=== PATIENT | female | born 1960 | race Two or more races ===

== ENCOUNTER 2023-12-06 10:00 | Emergency (ER) | payer MEDICAID, OTHER ==
[~2023-12-06] VITALS: Ht 152.4 cm; Wt 68.8 kg
[2023-12-06] MEDS ORDERED: MECLIZINE HCL 25 MG TAB PO ONE (10:15)
[2023-12-06] MEDS ORDERED: ACETAMINOPHEN 500 MG TAB PO ONE (10:15)
[2023-12-06 10:49] LABS: Basophils # (auto) 0 10 ^3/uL (0-0.2); Basophils % (auto) 0.6 % (0.0-2.0); Eosinophils # (auto) 0 10 ^3/uL (0-0.8); Eosinophils % (auto) 0.7 % (0.0-7.0); Hematocrit 40.4 % (36.0-46.0); Hemoglobin 13.3 g/dL (12.2-16.2); Lymphocytes % (auto) 45.2 % (10.0-50.0); Mean Corpuscular Hemoglobin 29.9 pg (28.0-32.0); Mean Corpuscular Hgb Conc. 32.9 g/dL (32.0-36.0); Mean Corpuscular Volume 90.6 fL (80.0-100.0); Monocytes # (auto) 0.3 10 ^3/uL (0-1.3); Monocytes % (auto) 4.6 % (0.0-12.0); Neutrophils # (auto) 3.2 10 ^3/uL (1.6-8.6); Neutrophils % (auto) 48.9 % (37.0-80.0); Nucleated Red Blood Cells % 0.1 %; Red Blood Cells 4.46 10^6/uL (4.0-5.20); White Blood Cell 6.6 10^3/uL (4.4-10.8)
[2023-12-06 11:24] LABS: Alanine Aminotransferase 22 U/L (7-40); Albumin 4.7 g/dL (3.2-4.8); Alkaline Phosphatase 116 U/L (46-116); Anion Gap 6 (5-15); Aspartate Aminotransferase 26 U/L (13-40); Bilirubin, Total 0.7 mg/dL (0.2-1.0); Blood Urea Nitrogen 18 mg/dL (9-23); Calcium 9.9 mg/dL (8.5-10.1); Carbon Dioxide 28 mmol/L (20-30); Chloride 105 mmol/L (98-107); Glucose 80 mg/dL (74-106); Potassium 4.3 mmol/L (3.5-5.1); Sodium 139 mmol/L (136-145); Total Protein 7.6 g/dL (5.7-8.2)
[2023-12-06 12:45] LABS: Amphetamine Screen, Urine Neg (NEGATIVE); Barbiturate Scree,Urine Neg (NEGATIVE); Benzodiazephine Screen, Urine Neg (NEGATIVE); Cocaine Screen, Urine Neg (NEGATIVE); Opiate Scree,Urine Neg (NEGATIVE)
[2023-12-06 12:46] LABS: Cannabinoid Screen, Urine Neg (NEGATIVE); Phencyclidine Screen, Urine Neg (NEGATIVE)
[2023-12-06 13:02] LABS: Urine Bacteria FEW /hpf (None Seen); Urine Blood 3+ /uL (Negative); Urine Clarity Clear (Clear); Urine Color STRAW (Yellow); Urine Protein, UAD Negative (Negative); Urine Urobilinogen Normal (Negative); Urine WBC 1 /hpf (0 - 5)
[2023-12-06] MEDS ORDERED: IOHEXOL 350 MG/ML 100ML IJ ONE (13:16)
[2023-12-06] MEDS ORDERED: MECL1TAB32 PO (14:16)
[2023-12-06] MEDS ORDERED: CEPH500T PO (14:16)
[2023-12-06 16:18] VITALS: BP 154/79; PULSE 61; RESP 16; TEMP 98.3; O2SAT 99
== END 2023-12-06 16:22 | disposition home or self-care (01) ==
LOC: ER 10:00
DX: R42 Dizziness and giddiness (principal); N39.0 Urinary tract infection, site not specified; R07.89 Other chest pain
CPT/HCPCS: 36415; 70450; 71045; 71275; 72125; 80053; 80307; 81001; 82962; 83880; 84484; 85025; 85379; 93005; 99285; J8597; Q9967

== ENCOUNTER 2025-07-20 15:29 | Emergency (ER) | payer MEDICARE, MEDICAID ==
[~2025-07-20] VITALS: Ht 154.9 cm; Wt 67.9 kg
[~2025-07-20 15:29] MED LIST: CEPH500T PO; MECL-90 PO
--- NOTE | 2025-07-20 16:08 | DVH ---
CHEST RADIOGRAPH Indication: COUGH Technique: Frontal and lateral view of the chest was obtained Comparison: CT CT ANGIO CHEST CONTRAST on DOS: 12/06/23, XY CHEST PORTABLE on DOS: 12/06/23 FINDINGS: Lines and Tubes: None Lungs: Congestion Pleura: No effusion. No pneumothorax. Cardiomediastinal contours: Unremarkable Bones: Unremarkable IMPRESSION: Increased interstital prominence. This may represent pulmonary vascular congestion and/or viral pneum onia. Clinical correlation advised.
--- NOTE | 2025-07-20 16:35 | ED.PDOC ---
SOB-HPI HPI Comments A 65 YEAR OLD FEMALE PRESENTS TO THE ED WITH COMPLAINT OF FLU-LIKE SYMPTOMS. PATIENT STATES SHE HAS BEEN EXPERIENCING A COUGH, CONGESTION, SORE THROAT, AND BILATERAL EAR PAIN FOR THE PAST 2 DAYS. PATIENT REPORTS SHE TOOK AN AT HOME COVID-19 TEST AND IT WAS POSITIVE. PATIENT DENIES FEVER, CHILLS, SHORTNESS OF BREATH, CHEST PAIN, ABDOMINAL PAIN, NAUSEA, VOMITING, HEADACHE, OR OTHER COMPLAINTS. NO OTHER SYMPTOMS OR MODIFYING FACTORS AT THIS TIME. PATIENT IS ALERT, ORIENTED X 4, AND HAS STEADY GAIT. 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 CAR RENTAL AGENT History Family History Family History: Reviewed,noncontributory to illness Social History Smoker: Non-Smoker Alcohol: Denies ETOH Use Drugs: Denies Drug Use Lives In: Home Constitutional: denies: chills, diaphoresis, fatigue, fever, malaise, sweats, weakness, others EENTM: reports: ear pain, nose congestion, throat pain; denies: blurred vision, double vision, ear bleeding, ear discharge, ear drainage, ear ringing, eye pain, eye redness, hearing loss, mouth pain, mouth swelling, nasal discharge, nose bleeding, nose pain, photophobia, tearing, throat swelling, voice changes, others Respiratory: reports: cough; denies: hemoptysis, orthopnea, SOB at rest, shortness of breath, SOB with excertion, stridor, wheezing, others Cardiovascular: denies: chest pain, dizzy spells, diaphoresis, Dyspnea on exertion, edema, irregular heart beat, left arm pain, lightheadedness, palpitations, PND, syncope, others Gastrointestinal: denies: abdomen distended, abdominal pain, blood streaked bowels, constipated, diarrhea, dysphagia, difficulty swallowing, hematemesis, melena, nausea, poor appetite, poor fluid intake, rectal bleeding, rectal pain, vomiting, others Genitourinary: denies: abnormal vagina bleeding, burning, dyspareunia, dysuria, flank pain, frequency, hematuria, incontinence, pain, , vagina discharge, urgency, others Neurological: denies: dizziness, fainting, headache, left sided numbness, left sided weakness, numbness, paresthesia, pre-existing deficit, right sided numbness, right sided weakness, seizure, speech problems, tingling, tremors, weakness, others Musculoskeletal: denies: back pain, gout, joint pain, joint swelling, muscle pain, muscle stiffness, neck pain, others Integumetry: denies: bruises, change in color, change in hair/nails, dryness, laceration, lesions, lumps, rash, wounds, others Allergic/Immunocompromised: denies: Difficulty Healing, Frequent Infections, Hives, Itching, others Hematologic/Lymphatic: denies: anemia, blood clots, easy bleeding, easy bruising, swollen glands, others Endocrine: denies: excessive hunger, excessive sweating, excessive thirst, excessive urination, flushing, intolerance to cold, intolerance to heat, unexplained weight gain, unexplained weight loss, others Psychiatric: denies: anxiety, bipolar disorder, depression, hopeless, panic disorder, schizophrenia, sleepless, suicidal, others All Other Systems: Reviewed and Negative Physical Exam General Appearance: No Apparent Distress, Normal HEENT: PERRL/EOMI, Pharyngeal Erythema (VESICLE PHARYNX, NO EXUDATES. ), TM Abnormal (L), TM Abnormal (R) Neck: Full Range of Motion, Non-Tender, Normal, Normal Inspection Respiratory: Chest Non-Tender, Lungs Clear, No Accessory Muscle Use, No Respiratory Distress, Normal Breath Sounds Cardiovascular: No Edema, No JVD, No Murmur, No Gallop, Normal Peripheral Pulses, Regular Rate/Rhythm Breast Exam: Deferred Gastrointestinal: No Organomegaly, Non Tender, No Pulsatile Mass, Normal Bowel Sounds, Soft Genitalia: Deferred Pelvic: Deferred Rectal: Deferred Extremities: No calf tenderness, Normal capillary refill, Normal inspection, Normal range of motion, Non-tender, No pedal edema Musculoskeletal : Apperance: Normal 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 Was a procedure done?: No Differential Dx Differential Diagnosis: Bronchitis, Pneumonia, Sinusitis, Allergic Rhinitis, Otitis Media, Pharyngitis, URI X-Ray, Labs, Meds, VS Vital Signs Date Time Temp Pulse Resp B/P (MAP) Pulse Ox O2 Delivery O2 Flow Rate FiO2 07/20/25 15:33 98.4 80 16 186/76 96 98.4 CHEST RADIOGRAPH Indication: COUGH Technique: Frontal and lateral view of the chest was obtained Comparison: CT CT ANGIO CHEST CONTRAST on DOS: 12/06/23, XY CHEST PORTABLE on DOS: 12/06/23 FINDINGS: Lines and Tubes: None Lungs: Congestion Pleura: No effusion. No pneumothorax. Cardiomediastinal contours: Unremarkable Bones: Unremarkable IMPRESSION: Increased interstital prominence. This may represent pulmonary vascular congestion and/or viral pneumonia. Clinical correlation advised. ATED BY: YUVAL SANDERSON MD DICTATED DATE/TIME: 07/20/25 160 SIGNED BY: YUVAL SANDERSON MD SIGNED DATE/TIME: 07/20/25 160 CC: X-Ray, Labs, Meds, VS Comment EXTERNAL MEDICAL RECORDS REVIEWED: [NONE] INDEPENDENT HISTORIANS: [NONE] SOCIAL DETERMINANTS OF HEALTH: [NONE] LABS ORDERED: NONE REVIEWED AND INTERPRETED RESULTS: NONE IMAGING ORDERED: XR CHEST TREATMENTS ORDERED: NONE PROCEDURES PERFORMED: NONE CRITICAL CARE TIME: NONE I HAVE DISCUSSED THE PATIENT WITH THE ATTENDING PHYSICIAN DR. COLON AND HE AGREES WITH THE PATIENT'S PLAN OF CARE AND DISPOSITION. BASED ON HISTORY OF PRESENT ILLNESS, AND PHYSICAL EXAM, PATIENT WILL BE DISCHARGED HOME. DISCUSSED PLAN FOR DISCHARGE HOME WITH RX [AZITHROMYCIN AND TYLENOL]. MEDICATION WARNINGS GIVEN. SHARED DECISION MAKING: DISCUSSED WITH PATIENT THAT THEIR WORKUP WAS NORMAL. PATIENT INSTRUCTED TO FOLLOW UP WITH PRIMARY CARE PROVIDER IN 1-2 DAYS FOR RE- EVALUATION OF SYMPTOMS. PATIENT VERBALIZES UNDERSTANDING TO RETURN TO ED FOR NEW OR WORSENING SYMPTOMS OR IF FOLLOW UP WITH PCP CANNOT BE OBTAINED. PATIENT FEELS COMFORTABLE GOING HOME AT THIS TIME. ALL QUESTIONS ADDRESSED AT TIME OF DISCHARGE. Images Reviewed?: Images reviewed and evaluated by me Time of 1ST Reevaluation: 16:43 Reevaluation 1ST: Improved Patient Education/Counseling: Diagnosis, Treatment, Need For Follow Up Family Education/Counseling: Diagnosis, Treatment, Need For Follow Up Medical Screening: No EMC Exist At This Time SEPSIS Sepsis Screen Date sepsis recognized/suspect: Jul 20, 2025 Time Sepsis recognized/suspect: 1535 Recent Procedure: No On Antibiotic Therapy: No Respiratory Rate >20: No Heart Rate >90: No Temp<36 C (96.8 F) or >38.3 C: No SBP <90 or MAP <65 mmHG: No New Acute Mental Status Change: No Is the patient on CPAP, BIPAP,: No Physician Orders Chest Two Views Routine (07/20/25 15:38) Vital Signs Date Time Temp Pulse Resp B/P (MAP) Pulse Ox O2 Delivery O2 Flow Rate FiO2 07/20/25 15:33 98.4 80 16 186/76 96 98.4 Departure 1 Departure Time of Disposition: 16:44 Impression: Primary Impression: SARS-CoV-2 positive Additional Impressions: Acute pharyngitis Qualified Codes: J02.9 - Acute pharyngitis, unspecified Otitis media of both ears Qualified Codes: H65.03 - Acute serous otitis media, bilateral Disposition: 01 HOME / SELF CARE / HOMELESS Condition: Stable Additional Instructions: FOLLOW-UP WITH PCP IN 1 TO 2 DAYS. TAKE MEDICATIONS PRESCRIBED. RETURN TO ED FOR ANY NEW OR WORSENING SYMPTOMS. e-Prescriptions Methylprednisolone (Medrol Dosepak) 4 Mg Adam 4 MG PO UD, #21 TAB UAD Prov: VICKI PINON 07/20/25 Acetaminophen (Tylenol Extra Strength Fo) 500 Mg Tab 1000 MG PO BID, #30 TAB Prov: VICKI PINON 07/20/25 Azithromycin (Azithromycin) 500 Mg Tab 1 TAB PO DAILY, #5 TAB Prov: VICKI PINON 07/20/25 Discharged With: Self Critical Care Note Critical Care Time?: No Stability Stability form required: No Heart Score Heart Score: Heart Score Response (Comments) Value History N/A 0 EKG N/A 0 Age N/A 0 Risk Factors N/A 0 Troponin N/A 0 Total 0 I personally scribed for VICKI PINON ([email or web address]) on 07/20/25 at 16:35. Electronically submitted by Adal Mayer ([email or web address]). VICKI PINON Jul 20, 2025 16:35
[2025-07-20] MEDS ORDERED: AZIT500T66 PO (16:40)
[2025-07-20] MEDS ORDERED: ACET-1304 PO (16:40)
[2025-07-20] MEDS ORDERED: PROM1SOL4 PO (16:40)
[2025-07-20] MEDS ORDERED: METH4PAK PO (16:45)
[2025-07-20 16:55] VITALS: BP 134/43; PULSE 62; RESP 18; TEMP 98; O2SAT 98
== END 2025-07-20 16:58 | disposition home or self-care (01) ==
LOC: ER 15:32
DX: U07.1 COVID-19 (principal); J02.9 Acute pharyngitis, unspecified; H65.03 Acute serous otitis media, bilateral; M19.90 Unspecified osteoarthritis, unspecified site; E03.9 Hypothyroidism, unspecified; Z98.890 Other specified postprocedural states
CPT/HCPCS: 71046